=== PATIENT | female | born 1995 | race Caucasian/White ===

== ENCOUNTER 2019-05-16 22:09 | Emergency (ER) | payer OTHER, SELFPAY ==
--- NOTE | ~2019-05-16 | CT_ITS ---
EXAMINATION: CT abdomen pelvis w con DATE: 05/17/2019 00:17 INDICATION: Low abdominal pain. Pelvic pain. TECHNIQUE: Computed tomography (CT) of the abdomen and pelvis was performed with 100 mm Omnipaque 350 intravenous contrast. Automated exposure control and iterative reconstruction technique were employe d. The dose-length product was 240.18 mGy-cm. COMPARISON: None. FINDINGS: The visualized portions of the lung bases are clear without pneumonia or pleural effusion. The heart size is normal. No pericardial effusion. The liver, gallbladder, spleen, pancreas, adrenal glands, and kidneys are normal. There are no dilated loops of bowel. The appendix is not visualized. There are no pathologically enlarged lymph nodes. There is no free intraperitoneal fluid. There is mi ld thoracolumbar spondylosis. IMPRESSION: 1. No etiology for the patient's symptoms. 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
[2019-05-16 22:17] VITALS: BP 134/86; PULSE 101; RESP 18; TEMP 36.7; O2SAT 99
--- NOTE | 2019-05-16 22:25 | ED.FEMALEGU ---
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 Pt notes that she fills an entire pad every 2 hours. Pt called her OB last week and was recommended to come to the ED if the vaginal bleeding did not stop by the end of the month. Pt denies scheduling an appointment with her OB at [facility]. Pt also reports lower abdominal cramping pain that feels like contractions, hot flashes, vaginal pruritus, weakness, nausea, vomiting, and chills, but denies a fever and diarrhea. MD elicited complaint: vaginal bleeding Pertinent past history: tubal ligation Onset (ago): month(s) (2) Location of symptoms: vaginal Quality of pain: cramping Consistency: other (still present) Vaginal bleeding: heavy Associated symptoms: abdominal pain (lower, cramping), weakness, chills, nausea, vomiting and other (hot flashes, vaginal pruritus) Sexual activity: Yes Related Data Allergies Allergy/AdvReac Type Severity Reaction Status Date / Time hydromorphone [From Dilaudid] AdvReac Rash Verified 05/16/19 22:51 tramadol AdvReac Rash Verified 05/16/19 22:51 Review of Systems Review of Systems: Narrative: CONSTITUTIONAL: Reports hot flashes and chills. Denies fever. GASTROINTESTINAL: Reports lower abdominal cramping pain, nausea, and vomiting. Denies diarrhea. GENITOURINARY: Reports vaginal bleeding and vaginal pruritus. NEUROLOGIC: Reports weakness. All systems reviewed & are unremarkable except as noted in HPI and below PMFSH Past Medical History Medical History (Updated 05/17/19 @ 00:26 by Irais Bazzi MD) Lower back nerve damage Ovarian cyst Surgical History Surgical History (Updated 05/16/19 @ 22:37 by Janie Olivares) History of tubal ligation Social History Social History (Updated 05/16/19 @ 22:37 by Janie Olivares) Smoking status: Unknown if ever smoked Gender identity (if verbalized by the patient): Female Exam Narrative: Exam Narrative: GENERAL: Well-appearing, well-nourished, and in no acute distress. HEAD: Normocephalic, atraumatic. EYES: PERRLA and EOMI. ENT: Nares clear, no rhinorrhea or epistaxis. Mucous membranes moist. NECK: Supple. CHEST: Clear to auscultation. No respiratory distress. HEART: Regular rate and rhythm. No murmur heard. Normal peripheral pulses. ABDOMEN: Soft, tender in suprapubic area, no guarding, non rigid, nondistended, normal active bowel sounds. -Female: Labia majora and minora normal without lesions. Vagina without blood. + cervical motion tenderness. Cervix erythematous, with some excoriated tissue. No adnexal tenderness or fullness bilaterally. No purulent discharge. No kecia discharge observed. + Mucoid discharge present. EXTREMITIES: Normal range of motion. No edema. SKIN: Warm, dry, no rash. NEURO: No focal deficits. Alert and oriented X3. EOMs intact without nystagmus. No facial droop/asymmetry noted bilaterally. Grimace intact. Intact sensation in face. Hearing intact bilaterally. Shoulder shrug intact. Strength 5/5 bilateral upper extremities. Strength 5/5 bilateral lower extremities. Reflexes 2+ patellar. Heel to hall intact bilaterally. Ambulatory with a narrow-based, steady gait. Course Course Emergency Course: Patient presenting for evaluation of lower abdominal pain. Patient symptoms seem mostly chronic, she does states she has had some intermittent vaginal bleeding since delivery of her last child. Patient is monogamous with her , she denies any new sexual partners, no history of sexual transmitted infection. On exam, patient does have some cervical motion tenderness, there is some friability of the cervix without p
[2019-05-16 23:23] LABS: Basophils Absolute Auto 0.1 K/mm3 (0.0-0.1); Basophils Percent Auto 0.7 % (0.2-1.2); Eosinophils Absolute Auto 0.2 K/mm3 (0-0.3); Eosinophils Percent Auto 2.6 % (0-4.4); Hematocrit 37.8 % (37.0-47.0); Hemoglobin 12.1 g/dL (12.0-15.0); Immature Granulocyte Absolute 0.02 K/mm3 (0.00-0.031); Immature Granulocyte Percent A 0.3 % (0-0.5); Lymphocytes Absolute Auto 2.67 K/mm3 (0.9-3.2); Lymphocytes Percent Auto 34.8 % (18.3-44.2); Mean Corpuscular Hemoglobin 25.9 pg (26-34); Mean Corpuscular Volume 80.9 fl (80-100); Mean Platelet Volume 11.3 fl (7.4-10.4); Monocytes Absolute Auto 0.4 K/mm3 (0.1-0.6); Monocytes Percent Auto 5.7 % (2.6-8.5); Neutrophils Absolute Auto 4.3 K/mm3 (1.3-6.7); Neutrophils Percent Auto 55.9 % (45.5-73.1); Platelet Count Result 308 k/mm3 (150-375); Red Blood Count 4.67 M/mm3 (4.2-5.4); Red Cell Distribution Width 14.2 % (11.5-14.5); White Blood Count 7.7 K/mm3 (4.5-10.0)
[2019-05-16 23:28] LABS: Add Urine Microscopic? YES; Appearance Urine Clear (Clear); Bilirubin Urine Negative (Negative); Blood Urine Negative (Negative); Color Urine Yellow (Yellow); Glucose Urine UA Negative (Negative); Ketones Urine Negative (Negative); Leukocyte Esterase Ur 2+ LEU/UL (Negative); Mucus Urine Heavy /lpf; Nitrate Urine Negative (Negative); Protein Urine Negative (Negative); Specific Grav Ur 1.025 (1.001-1.035); Squamous Epithelial Cell Urine Occasional /hpf (Few); Urobilinogen Urine Negative mg/dL (<2.0)
[2019-05-16 23:34] LABS: Alanine Aminotransferase 17 U/L (4-35); Albumin Level 4.5 g/dL (3.5-5.1); Alkaline Phosphatase 64 U/L (38-126); Aspartate Amino Transferase 27 U/L (14-36); Bilirubin,Total 0.2 mg/dL (0.2-1.3); Blood Urea Nitrogen 10 mg/dL (7-17); Calcium 9.4 mg/dL (8.4-10.2); Carbon Dioxide 22 mmol/L (22-30); Chloride 103 mmol/L (98-107); Estimated Glomerular Filt Rate > 60; Glucose 110 mg/dL (65-105); Lipase 217 U/L (23-300); Potassium 3.5 mmol/L (3.4-5.0); Sodium 140 mmol/L (137-145)
--- NOTE | 2019-05-17 00:57 | PC.NURSE ---
Patient given 250mg Rocephin IM to right ventrogluteal. MAR not allowing charting at this time.
[2019-05-17 01:40] VITALS: BP 132/88; PULSE 89; RESP 18; O2SAT 97
== END 2019-05-17 00:56 | disposition home or self-care (01) ==
PROVIDERS: Emergency Provider Emergency Medicine
DX: N76.0 Acute vaginitis (principal); R10.2 Pelvic and perineal pain
CPT/HCPCS: 36415; 74177; 80053; 81001; 81025; 83690; 84443; 85025; 87070; 87147; 87186; 87491; 87591; 87808; 96372; 99284; A9270; Q9967

== ENCOUNTER → 2020-07-08 01:58 | Outpatient (CLI) | payer OTHER, SELFPAY ==
[2020-07-08 19:34] LABS: SARS-CoV-2 RNA PCR Negative
== END ==
PROVIDERS: Visit Provider Otolaryngology
DX: Z01.812 Encounter for preprocedural laboratory examination (principal); Z20.822 Contact with and (suspected) exposure to COVID-19
CPT/HCPCS: C9803; U0003; U0005

== ENCOUNTER → 2020-07-31 09:14 | Outpatient (CLI) | payer OTHER, SELFPAY ==
[2020-07-31 19:57] LABS: SARS-CoV-2 RNA PCR Negative
== END ==
PROVIDERS: Visit Provider Otolaryngology
DX: Z01.812 Encounter for preprocedural laboratory examination (principal); Z20.822 Contact with and (suspected) exposure to COVID-19
CPT/HCPCS: C9803; U0003; U0005

== ENCOUNTER 2020-08-03 01:02 | Day surgery (SDC) | payer OTHER, SELFPAY ==
[2020-06-28 10:17] VITALS: BMI 21.4
--- NOTE | 2020-07-10 06:57 | PM.HPGS ---
History of Present Illness History of Present Illness Consent: Risks, benefits, and alternatives have been discussed and questions answered. Patient agrees to proceed with procedure. Chief complaint: nasal septal devation, chronic tonsilitis Narrative: Bell Trivedi is a 25 year old female has deviated septum on the right side she has trouble breathing Review of Systems Review of Systems: All systems reviewed & are unremarkable except as noted in HPI and below PMFSH Past Medical History Medical History Lower back nerve damage Ovarian cyst Surgical History Surgical History History of tubal ligation Social History Social History Smoking packs per day: 1 Smoking cigarettes per day: 20.0 Years smoked: 10 Smoking pack-years: 10.00 Smoking status: Current every day smoker Tobacco type: cigarettes Alcohol intake: never Substance use: never Substance use type: does not use Gender identity (if verbalized by the patient): Female Spiritual care concerns: No Meds Home Medications and Allergies Home Medications Medication Instructions Recorded Confirmed Type albuterol sulfate 1 inh INHALATION Q6H PRN 06/28/20 06/28/20 History budesonide-formoterol [Symbicort] 2 puff INHALATION DAILY 06/28/20 06/28/20 History estradiol 2 mg PO DAILY 06/28/20 06/28/20 History Allergies Allergy/AdvReac Type Severity Reaction Status Date / Time hydromorphone [From Dilaudid] Allergy Severe Difficulty Verified 06/28/20 10:14 Breathing tramadol Allergy Severe Difficulty Verified 06/28/20 10:14 Breathing Exam Narrative: Exam Narrative: chest clear heart without murmurs abdomen soft extremities negative septum deviated to the right with obstruction chronic cryptic tonsils Assessment and Plan Additional Plan plan is a set nasal septoplasty
--- NOTE | 2020-07-11 06:20 | WPDHPUPDATE1 ---
History and Physical Update Update Date/Time: 07/11/20 06:20 History and Physical has been reviewed, including an updated exam of the patient. There are NO changes in the patient's condition. Risks, benefits, and alternatives have been discussed and questions answered. Patient agrees to proceed with procedure.
--- NOTE | 2020-07-25 11:34 | PC.NURSE ---
Pt states no changes in medications or health history since initial interview, except for right hand fracture approximately 1 week ago. Medication list updated. New Covid date/time and pre-op instructions reviewed with pt. Pt. denies questions at this time.
--- NOTE | 2020-07-31 06:10 | PM.HPGS ---
History of Present Illness History of Present Illness Consent: Risks, benefits, and alternatives have been discussed and questions answered. Patient agrees to proceed with procedure. Chief complaint: nasal septal devation, chronic tonsilitis Narrative: Bell Trivedi is a 25 year old female she has a deviated septum to the right with obstruction unable to breathe at night and during the day she has also been getting recurring episodes of tonsillitis Review of Systems Review of Systems: All systems reviewed & are unremarkable except as noted in HPI and below PMFSH Past Medical History Medical History Lower back nerve damage Ovarian cyst Surgical History Surgical History History of tubal ligation Social History Social History Smoking packs per day: 1 Smoking cigarettes per day: 20.0 Years smoked: 10 Smoking pack-years: 10.00 Smoking status: Current every day smoker Tobacco type: cigarettes Alcohol intake: never Substance use: never Substance use type: does not use Living arrangements: with family Gender identity (if verbalized by the patient): Female Spiritual care concerns: No Meds Home Medications and Allergies Home Medications Medication Instructions Recorded Confirmed Type albuterol sulfate 1 inh INHALATION Q6H PRN 06/28/20 07/25/20 History budesonide-formoterol [Symbicort] 2 puff INHALATION DAILY 06/28/20 07/25/20 History estradiol 2 mg PO DAILY 06/28/20 07/25/20 History hydrocodone-acetaminophen 1 tablet PO DAILY PRN 07/25/20 07/25/20 History Allergies Allergy/AdvReac Type Severity Reaction Status Date / Time hydromorphone [From Dilaudid] Allergy Severe Difficulty Verified 07/25/20 11:33 Breathing tramadol Allergy Severe Difficulty Verified 07/25/20 11:33 Breathing Exam Narrative: Exam Narrative: chest clear heart without murmurs abdomen is soft extremities negative septum deviated to the right with obstruction 3+ tonsils cryptic in nature neck negative Assessment and Plan Assessment and plan (1) Chronic tonsillitis: Code(s): J35.01 - Chronic tonsillitis Status: Acute Assessment and Plan: plan is a septoplasty and tonsillectomy
--- NOTE | 2020-08-02 14:08 | WPDANESEPPF ---
Anes - Initial Pre Proc Eval Procedure: Operation Date: 08/03/20 07:30 Proposed Procedures p Septoplasty, - Duane Campbell MD s Tonsillectomy - Duane Campbell MD Date/Time: 08/02/20 14:08 Surgeon: Duane Campbell MD Pre Op Diagnosis: nasal septal devation, chronic tonsilitis Patient Data Age: 25 Gender: F Height: 5 ft 4 in Weight: 56.7 kg Allergies Allergy/AdvReac Type Severity Reaction Status Date / Time hydromorphone [From Dilaudid] Allergy Severe Rash Verified 08/03/20 05:59 tramadol Allergy Severe Rash Verified 08/03/20 05:59 Home Medications Medication Instructions Recorded Confirmed Type albuterol sulfate 1 inh INHALATION Q6H PRN 06/28/20 08/03/20 History budesonide-formoterol [Symbicort] 2 puff INHALATION DAILY 06/28/20 08/03/20 History estradiol 2 mg PO DAILY 06/28/20 08/03/20 History hydrocodone-acetaminophen 1 tablet PO DAILY PRN 07/25/20 08/03/20 History Patient hx anesthesia problems: none Family hx anesthesia problems: none PMFSH Past Medical History Medical History (Updated 08/02/20 @ 14:09 by Adolfo Sylvester MD) Asthma Bipolar 1 disorder Lower back nerve damage Ovarian cyst Surgical History Surgical History History of tubal ligation Social History Social History Smoking packs per day: 1 Smoking cigarettes per day: 20.0 Years smoked: 10 Smoking pack-years: 10.00 Smoking status: Current every day smoker Tobacco type: cigarettes Alcohol intake: never Substance use: never Substance use type: does not use Living arrangements: with family Gender identity (if verbalized by the patient): Female Spiritual care concerns: No Anes - Eval Final PreProcedure Day of Procedure 08/02/20 14:08 Patient weight: normal Heart: regular rate and rhythm Lungs: clear to auscultation Airway: Mallampati scale class II Neurological: alert and oriented Last oral intake: >/= 8 hours ASA classification: II Emergent: no Anesthetic plan: proceed Anesthesia type and monitoring: general ETT and standard monitoring Informed Consent: The patient's anesthetic plan and its attendant risks and benefits were discussed with the patient/family/POA. Questions were solicited and answers provided to the satisfaction of the patient/family/POA.
[2020-08-03] VITALS (11 sets, daily range): BP systolic 103–129; BP diastolic 57–84; PULSE 77–100; RESP 12–26; TEMP 36.2–37.3; O2SAT 99–100; BMI 21.4
--- NOTE | 2020-08-03 06:00 | WPDHPUPDATE1 ---
History and Physical Update Update Date/Time: 08/03/20 06:00 History and Physical has been reviewed, including an updated exam of the patient. There are NO changes in the patient's condition. Risks, benefits, and alternatives have been discussed and questions answered. Patient agrees to proceed with procedure.
[2020-08-03] MEDS: ACETAMINOPHEN 500 MG TABLET 1000 MG PO (06:18)
[2020-08-03] MEDS: LACTATED RINGERS 1,000 ML 30 ML IV CONT ×2 (06:27→08:35)
--- NOTE | 2020-08-03 06:27 | SUR.PREOP ---
PT STATES SHE REMOVED ALL PIERCINGS
[2020-08-03] MEDS: LIDO 1%/EPINEPHRINE 1:100,000 50 ML VIAL INFILTRATE (07:55)
--- NOTE | 2020-08-03 08:31 | PM.PROC ---
Procedure Note - Detailed Date of procedure: 08/03/20 Pre-op diagnosis: nasal septal devation, chronic tonsilitis Post-op diagnosis: same Procedure performed: Tonsillectomy septoplasty Description of procedure: Patient was prepped and draped in usual fashion after general anesthesia. The nose was injected with xylocaine with Adrenalin and packed with Neosporin Janak-Synephrine on cottonoids. A [] salomon transfixation was made anterior and posterior tunnel was elevated. The bony cartilage junction . The bony deviation was removed in its entirety. Swung the cardilege and bone to the midline nose open on both sides. The nose was then packed with Surgicel patient awakened returned to recovery good condition. The McIvor mouth gag was inserted tonsils removed with dissection technique hemostasis was obtained electrocautery hemo derm paste placed in the tonsil fossa is patient awakened returned to recovery in good condition Anesthesia: GLMA Surgeon: Duane Campbell MD Estimated blood loss (mL): 10 Drains: No Packing: No Pathology: none sent Complications: No immediate complications Condition: stable Disposition: PACU Findings: Markedly deviated septum tonsillar hypertrophy
[2020-08-03] MEDS: fentaNYL CITRATE INJ (*CRX) 100 MCG/2 ML VIAL 25 MCG IV PUSH ×4 (09:15→09:35)
--- NOTE | 2020-08-03 10:23 | SUR.PHASEII ---
patient denying more fentanyl. 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
== END 2020-08-03 10:42 | disposition home or self-care (01) ==
PROVIDERS: Visit Provider Otolaryngology
PROC: (CPT 30520; principal; 2020-08-03 07:30)
PROC: (CPT 30520; 2020-08-03 07:30)
DX: J34.2 Deviated nasal septum (principal); J35.01 Chronic tonsillitis; J45.909 Unspecified asthma, uncomplicated; F17.210 Nicotine dependence, cigarettes, uncomplicated
CPT/HCPCS: 30520; 42826; 88300; 88304; A9270; J0330; J1100; J2250; J2405; J2704; J3010; J7120